=== PATIENT | female | born 1980 | race Caucasian/White ===

== ENCOUNTER 2025-01-25 00:52 | Day surgery (SDC) | payer OTHER, SELFPAY ==
[2025-01-23 13:23] VITALS: BMI 25.1
[2025-01-25 11:26] VITALS: BP 143/96; PULSE 86; RESP 20; TEMP 36.5; O2SAT 99
[2025-01-25 11:31] LABS: BEDSIDEPREGUCG Negative (Negative)
[2025-01-25] MEDS: LACTATED RINGERS 1,000 ML 150 ML IV CONT (11:38)
--- NOTE | 2025-01-25 12:59 | WPDHPUPDATE1 ---
History and Physical Update Update Date/Time: 01/25/25 12:59 History and Physical has been reviewed, including an updated exam of the patient. There are NO changes in the patient's condition. Risks, benefits, and alternatives have been discussed and questions answered. Patient agrees to proceed with procedure.
[2025-01-25] MEDS: BENZOCAINE (*SP) 60 ML SPRAY CAN (HURRICAINE) 1 SPRAY MUCOUS MEM (13:11)
--- NOTE | 2025-01-25 13:15 | S_PTH ---
PATIENT: Lisa Mina LOC: [facility]#:[id number] AGE/SX: 44/F ROOM: RE01/25/[address]: Damian Roa MD : [id number] BED: DIS: 01/25/2025 SPEC #: [id number] RECD: 01/25/25 14:04 STATUS: BETHANY REVishnu #: [id number] VITO: 01/25/25 13:[address]: Damian Roa DEPT: [facility] Surgical RECD BY: Cecilia Lopez ENTERED: 01/25/25 14:04 SP TYPE: Surgical OTHR DR: Mg Oquendo MD Tissues: A - Small Bowel Bx B - Gastric Biopsy C - Esophageal Biopsy D - Colon Biopsy Procedures: Hematoxylin and Eosin Stain Gross and Microscopic Level 4
--- NOTE | 2025-01-25 13:16 | SUR.OPER ---
EGD: ended 1311, COLON: started 1315
[2025-01-25 13:26] VITALS: BP 109/63; PULSE 97; RESP 26; O2SAT 96
[2025-01-25 13:36] VITALS: BP 124/86; PULSE 83; RESP 15; O2SAT 95
[2025-01-25 13:46] VITALS: BP 131/89; PULSE 76; RESP 16; O2SAT 98
== END 2025-01-25 14:06 | disposition home or self-care (01) ==
PROVIDERS: Anesthesiology; PCP Family Medicine Adolescent Medicine; Visit Provider Internal Medicine Gastroenterology
PROC: 0DJ08ZZ Inspection of Upper Intestinal Tract, Via Natural or Artificial Opening Endoscopic (ICD-10-PCS; CPT 45378; principal; 2025-01-25 12:30)
DX: K52.9 Noninfective gastroenteritis and colitis, unspecified (principal); K92.1 Melena; K21.9 Gastro-esophageal reflux disease without esophagitis; R07.89 Other chest pain
CPT/HCPCS: 45380; 43239; 88305; J2003; J2704; J7120